=== PATIENT | male | born 1980 | race Caucasian/White ===

== ENCOUNTER 2020-02-11 23:11 | Emergency (ER) | payer MEDICAID ==
[~2020-02-11] VITALS: Ht 180.3 cm; Wt 74.8 kg
[2020-02-11 23:12] VITALS: BP 120/86
--- NOTE | 2020-02-11 23:13 | NUR ---
PT TAKEN TO CHAIR A
--- NOTE | 2020-02-11 23:55 | NUR ---
ERMD EVALUTING PT
[2020-02-12] MEDS ORDERED: ACETAMINOPHEN 325 MG TAB PO ONE
[2020-02-12] MEDS ORDERED: BACITRACIN OINT 500 UNITS/GM PKT TP ONE ×2 (00:49→00:50)
--- NOTE | 2020-02-12 00:56 | NUR ---
PATIENT BIB [place] [employer]. PATIENT EXAMINED BY DR. TREADWELL. PATIENT MEDICALLY CLEARED AND RELEASED IN CUSTODY IN STABLE CONDITION. ORIGINAL PRE-BOOK FORM GIVEN TO OFFICER ALEXI.
[2020-02-12 00:57] VITALS: BP 120/86
--- NOTE | 2020-02-12 00:57 | NUR ---
Patient discharged with v/s stable. Written and verbal after care instructions given and explained. Patient verbalized understanding. Police with in custody. All questions addressed prior to discharge. Advised to follow up with PMD.
== END 2020-02-12 00:57 | disposition home or self-care (01) ==
LOC: MED 23:11
DX: R10.13 Epigastric pain (principal); T81.49XA Infection following a procedure, other surgical site, initial encounter
CPT/HCPCS: 99283